=== PATIENT | female | born 1980 | race Caucasian/White ===

== ENCOUNTER 2017-09-24 00:12 | Inpatient (IN) | payer OTHER, BC ==
[2017-09-24] MEDS ORDERED: Nalbuphine 10 MG/1 ML Vial IVPUSH PRN (01:24)
[2017-09-24] MEDS ORDERED: Lidocaine 1% 50 ML MDV INJECT PRN (01:24)
[2017-09-24] MEDS ORDERED: Butorphanol 1 MG/ML SDV IVPUSH PRN (01:24)
[2017-09-24] MEDS ORDERED: Carboprost Tromethamine 250 MCG/1 ML Amp IM PRN (01:24)
[2017-09-24] MEDS ORDERED: Sodium Chloride 0.9% 10 ML Syringe FLUSH PRN (01:24)
[2017-09-24] MEDS ORDERED: Misoprostol 200 MCG Tab PO PRN (01:24)
[2017-09-24] MEDS ORDERED: Water For Irrigation,Sterile 1,000 ML Container IRR PRN (01:24)
[2017-09-24] MEDS ORDERED: Sodium Chloride 0.9% 2.5 ML Syringe FLUSH PRN (01:24)
[2017-09-24] MEDS ORDERED: Terbutaline 1 MG/ML SDV SUBCUT PRN (01:24)
[2017-09-24] MEDS ORDERED: Methylergonovine 0.2 MG/1 ML Amp IM PRN (01:24)
[2017-09-24] MEDS ORDERED: Tranexamic Acid 1,000 MG in Sodium Chloride 0.9% 100 ML IV PRN (01:24)
[2017-09-24] MEDS ORDERED: Oxytocin/0.9 % Sodium Chloride 30 UNIT/500 ML BAG IV SCH ×2 (01:30)
[2017-09-24] MEDS: Lactated Ringers 1,000 ML IV SCH ×3 (06:18→17:27)
[2017-09-24] MEDS ORDERED: Bupivacaine 0.25% 10 ML SDV ONE (10:16)
[2017-09-24] MEDS ORDERED: Bupivacaine 0.5% 10 ML SDV ONE (20:21)
[2017-09-25] MEDS ORDERED: Ondansetron 4 MG/2 ML SDV ONE (02:03)
[2017-09-25] MEDS ORDERED: Morphine PF 1 MG/ML Amp ONE (02:03)
[2017-09-25] MEDS ORDERED: Oxytocin 10 Units/1 ML SDV ONE ×2 (02:17→02:48)
[2017-09-25] MEDS ORDERED: ceFAZolin/Dextrose,Iso-Osmotic 2 GM/50 ML Duplex Bag IV ONE (02:17)
[2017-09-25] MEDS ORDERED: Sodium Chloride 0.9% 20 ML ONE (02:32)
[2017-09-25] MEDS ORDERED: ePHEDrine 50 MG/ML SDV ONE (02:32)
--- NOTE | 2017-09-25 02:53 | PCM.PREANE ---
Preanesthetic Assessment - Procedure Proposed Procedure: emergency failure to progress - Anesthesia/Transfusion/Family Hx Anesthesia History: Prior Anesthesia Without Reaction Family History of Anesthesia Reaction: No - Review of Systems Other: Reports: None - Physical Assessment Height: 5 ft 10 in Weight: 86.636 kg ASA Class: 2E Mental Status: Alert & Oriented x3 Airway Class: Mallampati = 2 Dentition: Reports: Normal Dentition Thyro-Mental Finger Breadths: 2 Mouth Opening Finger Breadths: 2 ROM/Head Extension: Full - Lab Values: Laboratory Last Values WBC 16.68 K/uL (4.0-11.0) H 09/24/17 02:25 RBC 4.07 M/uL (4.30-5.90) L 09/24/17 02:25 Hgb 12.0 g/dL (12.0-16.0) 09/24/17 02:25 Hct 34.5 % (36.0-46.0) L 09/24/17 02:25 MCV 84.8 fL (80.0-98.0) 09/24/17 02:25 MCH 29.5 pg (27.0-32.0) 09/24/17 02:25 MCHC 34.8 g/dL (31.0-37.0) 09/24/17 02:25 RDW Std Deviation 41.4 fl (28.0-62.0) 09/24/17 02:25 RDW Coeff of Annika 14 % (11.0-15.0) 09/24/17 02:25 Plt Count 142 K/uL (150-400) L 09/24/17 02:25 MPV 9.90 fL (7.40-12.00) 09/24/17 02:25 Nucleated RBC % 0.0 /100WBC 09/24/17 02:25 Nucleated RBCs # 0 K/uL 09/24/17 02:25 Membrane Rupture POSITIVE 09/24/17 00:35 Blood Type A NEGATIVE 09/24/17 02:25 Antibody Screen NEGATIVE 09/24/17 02:25 - Allergies Allergies/Adverse Reactions: Allergies Allergy/AdvReac Type Severity Reaction Status Date / Time No Known Allergies Allergy Verified 09/24/17 01:22 - Acknowledgements Anesthesia Type Planned: Epidural (epidural placed earlier will dose for section ) Pt an Appropriate Candidate for the Planned Anesthesia: Yes Alternatives and Risks of Anesthesia Discussed w Pt/Guardian: Yes Pt/Guardian Understands and Agrees with Anesthesia Plan: Yes PreAnesthesia Questionnaire - Past Health History Medical/Surgical History: Denies 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: - Past Surgical History HEENT Surgical History: Reports: Oral Surgery - SUBSTANCE USE Smoking Status *Q: Never Smoker Second Hand Smoke Exposure: No Recreational Drug Use History: No - HOME MEDS Home Medications: Home Meds PNV95/Ferrous Fumarate/FA [ Tablet] 1 tab PO DAILY 09/24/17 [History] valACYclovir HCl [Valtrex] 500 mg PO BID 09/24/17 [History] - CURRENT (IN HOUSE) MEDS Current Meds: Current Medications Butorphanol Tartrate (Stadol) 1 mg IVPUSH Q1H PRN PRN Reason: Pain Last Admin: 09/24/17 09:16 Dose: 1 mg Carboprost Tromethamine (Hemabate Ds) 250 mcg IM ASDIRECTED PRN PRN Reason: Post Hemorrhage Tranexamic Acid 1,000 mg/ (Sodium Chloride) 110 mls @ 660 mls/hr IV ONETIME PRN PRN Reason: Bleeding Lactated Ringer's (Ringers, Lactated) 1,000 mls @ 150 mls/hr IV ASDIRECTED [facility] Last Admin: 09/24/17 17:27 Dose: 150 mls/hr Oxytocin/Sodium Chloride (Oxytocin 30 Unit/500 Ml-Ns) 30 unit in 500 mls @ 999 mls/hr IV TITRATE [facility] Oxytocin/Sodium Chloride (Oxytocin 30 Unit/500 Ml-Ns) 30 unit in 500 mls @ 2 mls/hr IV TITRATE [facility]; Protocol Last Titration: 09/25/17 00:01 Dose: 30 munits/min, 30 mls/hr Lidocaine HCl (Xylocaine 1%) 50 ml INJECT .ONCE PRN PRN Reason: Laceration repair Methylergonovine Maleate (Methergine) 0.2 mg IM ASDIRECTED PRN PRN Reason: Post Hemorrhage Misoprostol (Cytotec) 200 mcg PO .ONCE PRN PRN Reason: Post Hemorrhage Nalbuphine HCl (Nubain) 10 mg IVPUSH Q1H PRN PRN Reason: Pain (severe 7-10) Sodium Chloride (Saline Flush) 10 ml FLUSH ASDIRECTED PRN PRN Reason: Keep Vein Open Sodium Chloride (Saline Flush) 2.5 ml FLUSH ASDIRECTED PRN PRN Reason: Keep Vein Open Sterile Water (Sterile Water For Irrigation) 1,000 ml IRR ASDIRECTED PRN PRN Reason: delivery Terbutaline Sulfate (Brethine) 0.25 mg SUBCUT ASDIRECTED PRN PRN Reason: Tacysystole Discontinued Medications Bupivacaine HCl (Sensorcaine-Mpf 0.25%) Confirm Administered Dose 10 ml .ROUTE .STK-MED ONE Stop: 09/24/17 10:17 Bupivacaine HCl (Sensorcaine-Mpf 0.5%) Confirm Administered Dose 20 ml .ROUTE .STK-MED ONE Stop: 09/24/17 20:22 Cefazolin Sodium/Dextrose (Ancef) Confirm Administered Dose 2 gm IV .STK-MED ONE Stop: 09/25/17 02:18 Ephedrine Sulfate (Ephedrine Sulfate) Confirm Administered Dose 50 mg .ROUTE .STK-MED ONE Stop: 09/25/17 02:33 Fentanyl/Bupivacaine HCl (Sbutaurn-Vbmjf-Pt 2 Mcg/Ml-0.125%) Confirm Administered Dose 100 mls @ as directed EP .STK-MED ONE Stop: 09/24/17 10:16 Fentanyl/Bupivacaine HCl (Soeibcyh-Vgbbx-Xh 2 Mcg/Ml-0.125%) Confirm Administered Dose 100 mls @ as directed EP .STK-MED ONE Stop: 09/24/17 19:32 Sodium Chloride (Normal Saline) Confirm Administered Dose 20 mls @ as directed .ROUTE .STK-MED ONE Stop: 09/25/17 02:33 Morphine Sulfate (Duramorph Pf) Confirm Administered Dose 1 mg .ROUTE .STK-MED ONE Stop: 09/25/17 02:04 Ondansetron HCl (Zofran) Confirm Administered Dose 4 mg .ROUTE .STK-MED ONE Stop: 09/25/17 02:04 Oxytocin (Pitocin) Confirm Administered Dose 20 unit .ROUTE .STK-MED ONE Stop: 09/25/17 02:18
[2017-09-25] MEDS ORDERED: Nalbuphine 10 MG/1 ML Vial IVPUSH PRN (03:08)
[2017-09-25] MEDS ORDERED: Naloxone 0.4 MG/ML Syringe IVPUSH PRN (03:08)
[2017-09-25] MEDS ORDERED: diphenhydrAMINE 50 MG/ML SDV IVPUSH PRN ×2 (03:08→03:30)
[2017-09-25] MEDS ORDERED: fentaNYL 100 MCG/2 ML SDV IVPUSH PRN (03:09)
[2017-09-25] MEDS ORDERED: Acetaminophen/oxyCODONE 325-5 MG Tab PO PRN ×2 (03:09→03:30)
[2017-09-25] MEDS ORDERED: Phenylephrine/Normal Saline 100 MCG/ML 10 ML Syringe ONE (03:18)
[2017-09-25] MEDS ORDERED: Ondansetron 4 MG/2 ML SDV IV PRN (03:30)
[2017-09-25] MEDS ORDERED: Lanolin 100% Cream 7 GM Tube TOP PRN (03:30)
[2017-09-25] MEDS ORDERED: Ibuprofen 800 MG Tab PO PRN (03:30)
[2017-09-25] MEDS ORDERED: Bisacodyl 10 MG Supp RECTAL PRN (03:30)
[2017-09-25] MEDS ORDERED: Lactated Ringers 1,000 ML IV SCH (03:30)
--- NOTE | 2017-09-25 03:38 | PCM.OPNOTE ---
- General Post-Op/Procedure Note Date of Surgery/Procedure: 09/25/17 Operative Procedure(s): Primary lower transverse Findings: Live male delivered at 210am , 9/9 , wt; 3920g Normal uterus , tube and ovaries Uterus closed in 2 layers Surgicel placed in bladder base on the right side due to oozing Pre Op Diagnosis: 37 yo @ 41w3d with Arrest of Dilatation Post-Op Diagnosis: same Primary Surgeon: [facility] Administrator: Jeni Hernandez Pathology: placenta Fluid Replacement, Intraop: 1,000 Output, Urine Amount: 250 EBL in mLs: 700 Complications: None Condition: Good
--- NOTE | 2017-09-25 03:44 | PCM.POSTAN ---
POST ANESTHESIA ASSESSMENT - MENTAL STATUS Mental Status: Alert, Oriented - RESPIRATORY Respiratory Status: Respiratory Rate WNL, Airway Patent, O2 Saturation Stable - CARDIOVASCULAR CV Status: Pulse Rate WNL, Blood Pressure Stable - GASTROINTESTINAL GI Status: No Symptoms - PAIN Pain Score: 0 - POST OP HYDRATION Hydration Status: Adequate & Stable
[2017-09-25] MEDS: Ketorolac 30 MG/ML SDV IVPUSH SCH ×4 (03:52→21:30)
--- NOTE | 2017-09-25 07:43 | PCM48HPAN ---
Post Anesthesia Note - EVALUATION WITHIN 48HRS OF ANESTHETIC Vital Signs in Normal Range: Yes Patient Participated in Evaluation: Yes Respiratory Function Stable: Yes Airway Patent: Yes Cardiovascular Function Stable: Yes Hydration Status Stable: Yes Pain Control Satisfactory: Yes Nausea and Vomiting Control Satisfactory: Yes Mental Status Recovered: Yes Resp Rate: 16
[2017-09-25] MEDS: Docusate Sodium 100 MG Cap PO SCH ×2 (10:18→21:30)
[2017-09-26] MEDS: Ketorolac 30 MG/ML SDV IVPUSH SCH (03:19)
--- NOTE | 2017-09-26 07:28 | PCM.PNPP ---
<Jeni Hernandez - Last Filed: 09/26/17 07:53> - General Info Date of Service: 09/26/17 Admission Dx/Problem (Free Text): Arrest of dilation, section Subjective Update: 37 year old POD#1 from for arrest of dilation. Functional Status: Reports: Pain Controlled, Tolerating Diet, Ambulating, Urinating - Review of Systems General: Denies: Fever, Chills HEENT: Denies: Headaches, Visual Changes Pulmonary: Denies: Shortness of Breath, Pleuritic Chest Pain, Cough Cardiovascular: Denies: Chest Pain, Edema Gastrointestinal: Denies: Constipation, Diarrhea, Nausea, Vomiting Genitourinary: Denies: Dysuria, Frequency, Burning Musculoskeletal: Denies: Leg Pain Neurological: Denies: Dizziness, Headache - General Info Date of Service: 09/26/17 - Patient Data Vital Signs - Most Recent: Last Vital Signs Temp 36.4 C 09/26/17 03:17 Pulse 83 09/26/17 03:17 Resp 18 09/26/17 03:17 BP 117/67 09/26/17 03:17 Pulse Ox 100 09/26/17 03:17 Weight - Most Recent: 86.636 kg I&O - Last 24 Hours: Intake & Output 09/25/17 09/26/17 09/26/17 22:59 06:59 14:59 Intake Total 2350 Output Total 850 Balance 1500 Lab Results - Last 24 Hours: Laboratory Results - last 24 hr 09/26/17 Range/Units 05:25 Hgb 9.8 L (12.0-16.0) g/dL Hct 28.2 L (36.0-46.0) % Med Orders - Current: Current Medications Bisacodyl (Dulcolax) 10 mg RECTAL .ONCE PRN PRN Reason: Constipation Butorphanol Tartrate (Stadol) 1 mg IVPUSH Q1H PRN PRN Reason: Pain Last Admin: 09/24/17 09:16 Dose: 1 mg Carboprost Tromethamine (Hemabate Ds) 250 mcg IM ASDIRECTED PRN PRN Reason: Post Hemorrhage Diphenhydramine HCl (Benadryl) 25 mg IVPUSH Q6H PRN PRN Reason: Itching or Nausea Docusate Sodium (Colace) 100 mg PO BID JAVIER Last Admin: 09/25/17 21:30 Dose: 100 mg Emollient Ointment (Lansinoh Hpa) 0 gm TOP ASDIRECTED PRN PRN Reason: Sore Nipples Last Admin: 09/25/17 15:23 Dose: 7 gm Fentanyl (Sublimaze) 25 - 50 mcg IVPUSH Q30M PRN PRN Reason: Pain Tranexamic Acid 1,000 mg/ (Sodium Chloride) 110 mls @ 660 mls/hr IV ONETIME PRN PRN Reason: Bleeding Lactated Ringer's (Ringers, Lactated) 1,000 mls @ 150 mls/hr IV ASDIRECTED JAVIER Last Admin: 09/24/17 17:27 Dose: 150 mls/hr Oxytocin/Sodium Chloride (Oxytocin 30 Unit/500 Ml-Ns) 30 unit in 500 mls @ 999 mls/hr IV TITRATE JAVIER Oxytocin/Sodium Chloride (Oxytocin 30 Unit/500 Ml-Ns) 30 unit in 500 mls @ 2 mls/hr IV TITRATE [facility]; Protocol Last Titration: 09/25/17 00:01 Dose: 30 munits/min, 30 mls/hr Lactated Ringer's (Ringers, Lactated) 1,000 mls @ 125 mls/hr IV ASDIRECTED [facility] Ibuprofen (Motrin) 800 mg PO Q8H PRN PRN Reason: mild pain or fever Lidocaine HCl (Xylocaine 1%) 50 ml INJECT .ONCE PRN PRN Reason: Laceration repair Methylergonovine Maleate (Methergine) 0.2 mg IM ASDIRECTED PRN PRN Reason: Post Hemorrhage Misoprostol (Cytotec) 200 mcg PO .ONCE PRN PRN Reason: Post Hemorrhage Ondansetron HCl (Zofran) 4 mg IV Q4H PRN PRN Reason: Nausea/Vomiting Oxycodone/Acetaminophen (Percocet 325-5 Mg) 1 - 2 tab PO Q6H PRN PRN Reason: Pain Stop: 09/27/17 14:00 Oxycodone/Acetaminophen (Percocet 325-5 Mg) 1 tab PO Q4H PRN PRN Reason: Pain (moderate 4-6) Oxycodone/Acetaminophen (Percocet 325-5 Mg) 2 tab PO Q4H PRN PRN Reason: Pain (moderate 4-6) Sodium Chloride (Saline Flush) 10 ml FLUSH ASDIRECTED PRN PRN Reason: Keep Vein Open Sodium Chloride (Saline Flush) 2.5 ml FLUSH ASDIRECTED PRN PRN Reason: Keep Vein Open Sterile Water (Sterile Water For Irrigation) 1,000 ml IRR ASDIRECTED PRN PRN Reason: delivery Terbutaline Sulfate (Brethine) 0.25 mg SUBCUT ASDIRECTED PRN PRN Reason: Tacysystole Discontinued Medications Bupivacaine HCl (Sensorcaine-Mpf 0.25%) Confirm Administered Dose 10 ml .ROUTE .STK-MED ONE Stop: 09/24/17 10:17 Bupivacaine HCl (Sensorcaine-Mpf 0.5%) Confirm Administered Dose 20 ml .ROUTE .STK-MED ONE Stop: 09/24/17 20:22 Cefazolin Sodium/Dextrose (Ancef) Confirm Administered Dose 2 gm IV .STK-MED ONE Stop: 09/25/17 02:18 Diphenhydramine HCl (Benadryl) 25 mg IVPUSH Q4H PRN PRN Reason: Itching Stop: 09/26/17 03:08 Ephedrine Sulfate (Ephedrine Sulfate) Confirm Administered Dose 50 mg .ROUTE .STK-MED ONE Stop: 09/25/17 02:33 Fentanyl/Bupivacaine HCl (Gkyagxfr-Qaynb-Fg 2 Mcg/Ml-0.125%) Confirm Administered Dose 100 mls @ as directed EP .STK-MED ONE Stop: 09/24/17 10:16 Fentanyl/Bupivacaine HCl (Vmwzqyys-Bwutd-Lq 2 Mcg/Ml-0.125%) Confirm Administered Dose 100 mls @ as directed EP .STK-MED ONE Stop: 09/24/17 19:32 Sodium Chloride (Normal Saline) Confirm Administered Dose 20 mls @ as directed .ROUTE .STK-MED ONE Stop: 09/25/17 02:33 Ketorolac Tromethamine (Toradol) 30 mg IVPUSH Q6H JAVIER Stop: 09/26/17 03:31 Last Admin: 09/26/17 03:19 Dose: 30 mg Morphine Sulfate (Duramorph Pf) Confirm Administered Dose 1 mg .ROUTE .STK-MED ONE Stop: 09/25/17 02:04 Nalbuphine HCl (Nubain) 10 mg IVPUSH Q1H PRN PRN Reason: Pain (severe 7-10) Nalbuphine HCl (Nubain) 5 mg IVPUSH Q3H PRN PRN Reason: Pruritis Stop: 09/26/17 03:08 Naloxone HCl (Narcan) 0.1 mg IVPUSH ONETIME PRN PRN Reason: Other Stop: 09/26/17 03:09 Ondansetron HCl (Zofran) Confirm Administered Dose 4 mg .ROUTE .STK-MED ONE Stop: 09/25/17 02:04 Oxytocin (Pitocin) Confirm Administered Dose 20 unit .ROUTE .STK-MED ONE Stop: 09/25/17 02:18 Oxytocin (Pitocin) Confirm Administered Dose 20 unit .ROUTE .STK-MED ONE Stop: 09/25/17 02:49 Phenylephrine HCl (Phenylephrine In Ns 100 Mcg/Ml) Confirm Administered Dose 1 mg .ROUTE .STK-MED ONE Stop: 09/25/17 03:19 - Infant Interaction Disposition, : Liberty in Room with Family Infant Interaction: Not Interacting (baby asleep in basinette) Support Person: - Recovery Exam Fundal Tone: Firm Fundal Level: At Umbilicus Fundal Placement: Midline Lochia Amount: Small Lochia Color: Rubra/Red Bladder Status: Voiding Urinary Elimination: Voided - Exam General: Alert, Oriented HEENT: Pupils Equal, Pupils Reactive Lungs: Clear to Auscultation, Normal Respiratory Effort. No: Wheezing Cardiovascular: Regular Rate, Regular Rhythm, No Murmurs GI/Abdominal Exam: Normal Bowel Sounds, Soft, No Distention. No: Guarding, Rebound Extremities: Normal Inspection, Normal Range of Motion, Non-Tender, No Pedal Edema, Normal Capillary Refill Skin: Warm, Dry, Intact Wound/Incisions: Healing Well Neurological: No New Focal Deficit Psy/Mental Status: Alert, Normal Affect, Normal Mood - Problem List Review Problem List Initiated/Reviewed/Updated: Yes - Assessment Assessment:: 37 year old POD#1 s/p section for arrest of dilation. Recovering appropriately. - Plan Plan:: Continue routine post op cares. <Merced Segura - Last Filed: 09/26/17 19:55> - Patient Data Vital Signs - Most Recent: Last Vital Signs Temp 36.4 C 09/26/17 16:00 Pulse 85 09/26/17 16:00 Resp 16 09/26/17 16:00 BP 112/68 09/26/17 16:00 Pulse Ox 100 09/26/17 16:00 I&O - Last 24 Hours: Intake & Output 09/26/17 09/26/17 09/26/17 06:59 14:59 22:59 Intake Total 2 Balance 2 Lab Results - Last 24 Hours: Laboratory Results - last 24 hr 09/25/17 09/26/17 Range/Units 03:25 05:25 Hgb 9.8 L (12.0-16.0) g/dL Hct 28.2 L (36.0-46.0) % Antibody Screen NEGATIVE Screen NEGATIVE (NEGATIVE) RhIG Candidate? YES Rhogam Indicated YES, BABY RH POS H Med Orders - Current: Current Medications Bisacodyl (Dulcolax) 10 mg RECTAL .ONCE PRN PRN Reason: Constipation Butorphanol Tartrate (Stadol) 1 mg IVPUSH Q1H PRN PRN Reason: Pain Last Admin: 09/24/17 09:16 Dose: 1 mg Carboprost Tromethamine (Hemabate Ds) 250 mcg IM ASDIRECTED PRN PRN Reason: Post Hemorrhage Diphenhydramine HCl (Benadryl) 25 mg IVPUSH Q6H PRN PRN Reason: Itching or Nausea Docusate Sodium (Colace) 100 mg PO BID [facility] Last Admin: 09/26/17 08:49 Dose: 100 mg Emollient Ointment (Lansinoh Hpa) 0 gm TOP ASDIRECTED PRN PRN Reason: Sore Nipples Last Admin: 09/25/17 15:23 Dose: 7 gm Fentanyl (Sublimaze) 25 - 50 mcg IVPUSH Q30M PRN PRN Reason: Pain Tranexamic Acid 1,000 mg/ (Sodium Chloride) 110 mls @ 660 mls/hr IV ONETIME PRN PRN Reason: Bleeding Lactated Ringer's (Ringers, Lactated) 1,000 mls @ 150 mls/hr IV ASDIRECTED JAVIER Last Admin: 09/24/17 17:27 Dose: 150 mls/hr Oxytocin/Sodium Chloride (Oxytocin 30 Unit/500 Ml-Ns) 30 unit in 500 mls @ 999 mls/hr IV TITRATE [facility] Oxytocin/Sodium Chloride (Oxytocin 30 Unit/500 Ml-Ns) 30 unit in 500 mls @ 2 mls/hr IV TITRATE [facility]; Protocol Last Titration: 09/25/17 00:01 Dose: 30 munits/min, 30 mls/hr Lactated Ringer's (Ringers, Lactated) 1,000 mls @ 125 mls/hr IV ASDIRECTED [facility] Ibuprofen (Motrin) 800 mg PO Q8H PRN PRN Reason: mild pain or fever Last Admin: 09/26/17 12:58 Dose: 800 mg Lidocaine HCl (Xylocaine 1%) 50 ml INJECT .ONCE PRN PRN Reason: Laceration repair Methylergonovine Maleate (Methergine) 0.2 mg IM ASDIRECTED PRN PRN Reason: Post Hemorrhage Misoprostol (Cytotec) 200 mcg PO .ONCE PRN PRN Reason: Post Hemorrhage Ondansetron HCl (Zofran) 4 mg IV Q4H PRN PRN Reason: Nausea/Vomiting Oxycodone/Acetaminophen (Percocet 325-5 Mg) 1 - 2 tab PO Q6H PRN PRN Reason: Pain Stop: 09/27/17 14:00 Oxycodone/Acetaminophen (Percocet 325-5 Mg) 1 tab PO Q4H PRN PRN Reason: Pain (moderate 4-6) Last Admin: 09/26/17 08:49 Dose: 1 tab Oxycodone/Acetaminophen (Percocet 325-5 Mg) 2 tab PO Q4H PRN PRN Reason: Pain (moderate 4-6) Sodium Chloride (Saline Flush) 10 ml FLUSH ASDIRECTED PRN PRN Reason: Keep Vein Open Sodium Chloride (Saline Flush) 2.5 ml FLUSH ASDIRECTED PRN PRN Reason: Keep Vein Open Sterile Water (Sterile Water For Irrigation) 1,000 ml IRR ASDIRECTED PRN PRN Reason: delivery Terbutaline Sulfate (Brethine) 0.25 mg SUBCUT ASDIRECTED PRN PRN Reason: Tacysystole Discontinued Medications Bupivacaine HCl (Sensorcaine-Mpf 0.25%) Confirm Administered Dose 10 ml .ROUTE .STK-MED ONE Stop: 09/24/17 10:17 Bupivacaine HCl (Sensorcaine-Mpf 0.5%) Confirm Administered Dose 20 ml .ROUTE .STK-MED ONE Stop: 09/24/17 20:22 Cefazolin Sodium/Dextrose (Ancef) Confirm Administered Dose 2 gm IV .STK-MED ONE Stop: 09/25/17 02:18 Diphenhydramine HCl (Benadryl) 25 mg IVPUSH Q4H PRN PRN Reason: Itching Stop: 09/26/17 03:08 Ephedrine Sulfate (Ephedrine Sulfate) Confirm Administered Dose 50 mg .ROUTE .STK-MED ONE Stop: 09/25/17 02:33 Fentanyl/Bupivacaine HCl (Xcduidcx-Mefdw-Xm 2 Mcg/Ml-0.125%) Confirm Administered Dose 100 mls @ as directed EP .STK-MED ONE Stop: 09/24/17 10:16 Fentanyl/Bupivacaine HCl (Lhamvibz-Ywvuk-Rm 2 Mcg/Ml-0.125%) Confirm Administered Dose 100 mls @ as directed EP .STK-MED ONE Stop: 09/24/17 19:32 Sodium Chloride (Normal Saline) Confirm Administered Dose 20 mls @ as directed .ROUTE .STK-MED ONE Stop: 09/25/17 02:33 Ketorolac Tromethamine (Toradol) 30 mg IVPUSH Q6H J[facility]IER Stop: 09/26/17 03:31 Last Admin: 09/26/17 03:19 Dose: 30 mg Morphine Sulfate (Duramorph Pf) Confirm Administered Dose 1 mg .ROUTE .STK-MED ONE Stop: 09/25/17 02:04 Nalbuphine HCl (Nubain) 10 mg IVPUSH Q1H PRN PRN Reason: Pain (severe 7-10) Nalbuphine HCl (Nubain) 5 mg IVPUSH Q3H PRN PRN Reason: Pruritis Stop: 09/26/17 03:08 Naloxone HCl (Narcan) 0.1 mg IVPUSH ONETIME PRN PRN Reason: Other Stop: 09/26/17 03:09 Ondansetron HCl (Zofran) Confirm Administered Dose 4 mg .ROUTE .STK-MED ONE Stop: 09/25/17 02:04 Oxytocin (Pitocin) Confirm Administered Dose 20 unit .ROUTE .STK-MED ONE Stop: 09/25/17 02:18 Oxytocin (Pitocin) Confirm Administered Dose 20 unit .ROUTE .STK-MED ONE Stop: 09/25/17 02:49 Phenylephrine HCl (Phenylephrine In Ns 100 Mcg/Ml) Confirm Administered Dose 1 mg .ROUTE .STK-MED ONE Stop: 09/25/17 03:19 - Problem List & Annotations (1) delivery delivered SNOMED Code(s): 885357145 Code(s): O82 - ENCOUNTER FOR DELIVERY WITHOUT INDICATION Status: Acute Current Visit: Yes - Assessment Assessment:: 37 yo P1 s/p Primary LTCS , she has met all post operative goals. she is voiding , ambulating and tolerating regular diet , Minimal lochia. - Plan Plan:: Incentive spirometry , continue ambulation , Pain control as needed
[2017-09-26] MEDS: Acetaminophen/oxyCODONE 325-5 MG Tab PO PRN ×2 (08:49→21:49)
[2017-09-26] MEDS: Docusate Sodium 100 MG Cap PO SCH ×2 (08:49→21:12)
[2017-09-27] MEDS: Acetaminophen/oxyCODONE 325-5 MG Tab PO PRN (04:06)
--- NOTE | 2017-09-27 07:02 | PCM.PNPP ---
- General Info Date of Service: 09/27/17 Admission Dx/Problem (Free Text): 37 yo P1 s/p primary LTCS for arrest of dilatation Functional Status: Reports: Pain Controlled, Tolerating Diet, Ambulating, Urinating - Review of Systems General: Denies: Fever, Weakness, Fatigue Pulmonary: Denies: Shortness of Breath Cardiovascular: Denies: Chest Pain, Palpitations, Lightheadedness Gastrointestinal: Denies: Abdominal Pain, Nausea, Vomiting Genitourinary: Denies: Flank Pain Psychiatric: Reports: No Symptoms - General Info Date of Service: 09/27/17 - Patient Data Vital Signs - Most Recent: Last Vital Signs Temp 36.9 C 09/27/17 06:21 Pulse 91 09/27/17 06:21 Resp 16 09/27/17 06:21 BP 111/59 L 09/27/17 06:21 Pulse Ox 96 09/27/17 06:21 Weight - Most Recent: 86.636 kg I&O - Last 24 Hours: Intake & Output 09/26/17 09/26/17 09/27/17 14:59 22:59 06:59 Intake Total 2 Balance 2 Lab Results - Last 24 Hours: Laboratory Results - last 24 hr 09/25/17 Range/Units 03:25 Antibody Screen NEGATIVE Screen NEGATIVE (NEGATIVE) RhIG Candidate? YES Rhogam Indicated YES, BABY RH POS H Med Orders - Current: Current Medications Bisacodyl (Dulcolax) 10 mg RECTAL .ONCE PRN PRN Reason: Constipation Butorphanol Tartrate (Stadol) 1 mg IVPUSH Q1H PRN PRN Reason: Pain Last Admin: 09/24/17 09:16 Dose: 1 mg Carboprost Tromethamine (Hemabate Ds) 250 mcg IM ASDIRECTED PRN PRN Reason: Post Hemorrhage Diphenhydramine HCl (Benadryl) 25 mg IVPUSH Q6H PRN PRN Reason: Itching or Nausea Docusate Sodium (Colace) 100 mg PO BID JAVIER Last Admin: 09/26/17 21:12 Dose: 100 mg Emollient Ointment (Lansinoh Hpa) 0 gm TOP ASDIRECTED PRN PRN Reason: Sore Nipples Last Admin: 09/25/17 15:23 Dose: 7 gm Fentanyl (Sublimaze) 25 - 50 mcg IVPUSH Q30M PRN PRN Reason: Pain Tranexamic Acid 1,000 mg/ (Sodium Chloride) 110 mls @ 660 mls/hr IV ONETIME PRN PRN Reason: Bleeding Lactated Ringer's (Ringers, Lactated) 1,000 mls @ 150 mls/hr IV ASDIRECTED JAVIER Last Admin: 09/24/17 17:27 Dose: 150 mls/hr Oxytocin/Sodium Chloride (Oxytocin 30 Unit/500 Ml-Ns) 30 unit in 500 mls @ 999 mls/hr IV TITRATE JAVIER Oxytocin/Sodium Chloride (Oxytocin 30 Unit/500 Ml-Ns) 30 unit in 500 mls @ 2 mls/hr IV TITRATE JAVIER; Protocol Last Titration: 09/25/17 00:01 Dose: 30 munits/min, 30 mls/hr Lactated Ringer's (Ringers, Lactated) 1,000 mls @ 125 mls/hr IV ASDIRECTED JAVIER Ibuprofen (Motrin) 800 mg PO Q8H PRN PRN Reason: mild pain or fever Last Admin: 09/26/17 12:58 Dose: 800 mg Lidocaine HCl (Xylocaine 1%) 50 ml INJECT .ONCE PRN PRN Reason: Laceration repair Methylergonovine Maleate (Methergine) 0.2 mg IM ASDIRECTED PRN PRN Reason: Post Hemorrhage Misoprostol (Cytotec) 200 mcg PO .ONCE PRN PRN Reason: Post Hemorrhage Ondansetron HCl (Zofran) 4 mg IV Q4H PRN PRN Reason: Nausea/Vomiting Oxycodone/Acetaminophen (Percocet 325-5 Mg) 1 - 2 tab PO Q6H PRN PRN Reason: Pain Stop: 09/27/17 14:00 Oxycodone/Acetaminophen (Percocet 325-5 Mg) 1 tab PO Q4H PRN PRN Reason: Pain (moderate 4-6) Last Admin: 09/27/17 04:06 Dose: 1 tab Oxycodone/Acetaminophen (Percocet 325-5 Mg) 2 tab PO Q4H PRN PRN Reason: Pain (moderate 4-6) Sodium Chloride (Saline Flush) 10 ml FLUSH ASDIRECTED PRN PRN Reason: Keep Vein Open Sodium Chloride (Saline Flush) 2.5 ml FLUSH ASDIRECTED PRN PRN Reason: Keep Vein Open Sterile Water (Sterile Water For Irrigation) 1,000 ml IRR ASDIRECTED PRN PRN Reason: delivery Terbutaline Sulfate (Brethine) 0.25 mg SUBCUT ASDIRECTED PRN PRN Reason: Tacysystole Discontinued Medications Bupivacaine HCl (Sensorcaine-Mpf 0.25%) Confirm Administered Dose 10 ml .ROUTE .STK-MED ONE Stop: 09/24/17 10:17 Bupivacaine HCl (Sensorcaine-Mpf 0.5%) Confirm Administered Dose 20 ml .ROUTE .STK-MED ONE Stop: 09/24/17 20:22 Cefazolin Sodium/Dextrose (Ancef) Confirm Administered Dose 2 gm IV .STK-MED ONE Stop: 09/25/17 02:18 Diphenhydramine HCl (Benadryl) 25 mg IVPUSH Q4H PRN PRN Reason: Itching Stop: 09/26/17 03:08 Ephedrine Sulfate (Ephedrine Sulfate) Confirm Administered Dose 50 mg .ROUTE .STK-MED ONE Stop: 09/25/17 02:33 Fentanyl/Bupivacaine HCl (Ymfsjrwd-Yxwwi-Ru 2 Mcg/Ml-0.125%) Confirm Administered Dose 100 mls @ as directed EP .STK-MED ONE Stop: 09/24/17 10:16 Fentanyl/Bupivacaine HCl (Mhcikqyg-Akpct-Jz 2 Mcg/Ml-0.125%) Confirm Administered Dose 100 mls @ as directed EP .STK-MED ONE Stop: 09/24/17 19:32 Sodium Chloride (Normal Saline) Confirm Administered Dose 20 mls @ as directed .ROUTE .STK-MED ONE Stop: 09/25/17 02:33 Ketorolac Tromethamine (Toradol) 30 mg IVPUSH Q6H JAVIER Stop: 09/26/17 03:31 Last Admin: 09/26/17 03:19 Dose: 30 mg Morphine Sulfate (Duramorph Pf) Confirm Administered Dose 1 mg .ROUTE .STK-MED ONE Stop: 09/25/17 02:04 Nalbuphine HCl (Nubain) 10 mg IVPUSH Q1H PRN PRN Reason: Pain (severe 7-10) Nalbuphine HCl (Nubain) 5 mg IVPUSH Q3H PRN PRN Reason: Pruritis Stop: 09/26/17 03:08 Naloxone HCl (Narcan) 0.1 mg IVPUSH ONETIME PRN PRN Reason: Other Stop: 09/26/17 03:09 Ondansetron HCl (Zofran) Confirm Administered Dose 4 mg .ROUTE .STK-MED ONE Stop: 09/25/17 02:04 Oxytocin (Pitocin) Confirm Administered Dose 20 unit .ROUTE .STK-MED ONE Stop: 09/25/17 02:18 Oxytocin (Pitocin) Confirm Administered Dose 20 unit .ROUTE .STK-MED ONE Stop: 09/25/17 02:49 Phenylephrine HCl (Phenylephrine In Ns 100 Mcg/Ml) Confirm Administered Dose 1 mg .ROUTE .STK-MED ONE Stop: 09/25/17 03:19 - Interaction Disposition, : [place] in Room with Family Interaction: Not Interacting (baby asleep in basinette) Support Person: - Recovery Exam Fundal Tone: Firm Fundal Level: At Umbilicus Fundal Placement: Midline Lochia Amount: Scant Lochia Color: Rubra/Red Perineum Description: Intact, Minimal Bruising/Swelling Episiotomy/Laceration: None Bladder Status: Voiding Urinary Elimination: Voided - Exam General: Alert, Oriented Lungs: Normal Respiratory Effort Cardiovascular: Regular Rate, Regular Rhythm GI/Abdominal Exam: Normal Bowel Sounds, Soft Extremities: Pedal Edema (trace). No: Kourtney's Sign Skin: Warm, Dry, Intact Wound/Incisions: Healing Well, No Drainage. No: Erythema Psy/Mental Status: Alert, Normal Affect - Problem List & Annotations (1) delivery delivered SNOMED Code(s): 997188272 Code(s): O82 - ENCOUNTER FOR DELIVERY WITHOUT INDICATION Status: Acute Current Visit: Yes - Problem List Review Problem List Initiated/Reviewed/Updated: Yes - My Orders Last 24 Hours: My Active Orders 09/27/17 06:58 Ready for Discharge [RC] PER UNIT ROUTINE - Assessment Assessment:: POD 2 status post repeat C section - Plan Plan:: Discharge to home today. Infection and bleeding warnings reviewed. Discharge instructions reviewed. Follow up at [facility] 2 and 6 weeks.
--- NOTE | 2017-09-29 09:32 | OR ---
SURGEON: EMIL KNIGHT DATE OF PROCEDURE: 09/25/2017 PREOPERATIVE DIAGNOSES: A 37-year-old G1, P0 at 41 weeks 3 days with arrest of dilation. POSTOPERATIVE DIAGNOSES: A 37-year-old G1, P0 at 41 weeks 3 days with arrest of dilation. PROCEDURE Primary Lower transverse IV FLUIDS: 1000. ESTIMATED BLOOD LOSS: 700. URINE OUTPUT: 55 mL. FINDINGS: A live male delivered at 2:10 a.m. score of 9 and 9. Weight is 3920 g. BRIEF HISTORY ABOUT THE PATIENT: The patient is a 37-year-old, G1, P0, 41w3d.She was admitted in early labor , she was admitted with SROM. She made cervical changes to 4 to 5 cm. Pitocin was started , however ,Vaginal exam remained 5cm, despite Pitocin. Pitocin 20mu. During the labor course, the patient was noted to have category II heart tracing which resolved with intrauterine resuscitative measures. As patient did not make any cervical change despite Pitocin at 20mu. She was counselled for . She was allowed to ask questions , all questions answered DESCRIPTION OF PROCEDURE: The patient was taken to the operating room where epidural anesthesia was topped off. She was prepared and draped in the dorsal supine position with a leftward tilt. A Pfannenstiel skin incision was made with a scalpel and was carried down to the fascia with the Bovie. The fascia was incised and extended laterally. The fascia was from the rectus muscle inferiorly and superiorly to the level of the pubic symphysis. The rectus muscle was also in the midline. The peritoneum was then entered in bluntly and extended upward and outward. An Kris retractor was then placed to expose the lower uterine segment identified and bladder flap was created. A uterine incision was then created also. Fetus was in vertex position. The head of the infant was elevated to the level of the incision, then fundal pressure was applied. The head was delivered. The shoulder was delivered anteriorly, and also posterior shoulder was delivered. The infant was handed over to the awaiting buyer intern. The cord blood gases were obtained. The placenta was delivered by manual massage of the uterine fundus. The incision was then sutured in 2 layers with 0 vicyrl and 0 monocyrl respectively. The peritoneum was closed with 2.0 vicryl,The fascia was closed with 0 Vicryl, and the skin incision was closed with 3.0 Monocryl on a bertha needle. All instrument and pad count were correct x2. The patient was taken to the recovery room in stable condition ZE PRINCE /[id number] MTDD
== END 2017-09-27 10:05 | disposition home or self-care (01) | DRG 765 ==
LOC: MW.OBCHECK 00:12 → MW.OB 00:15 → UNDOADMOB 00:19 → MW.OBCHECK 00:19 → MW.OB 01:24 → OBSVTOIN 09-25 02:10 → MW.OB 09-25 04:00
PROVIDERS: ADMIT Obstetrics & Gynecology; ATTEND Obstetrics & Gynecology
PROC: 10D00Z1 Extraction of Products of Conception, Low, Open Approach (ICD-10-PCS; principal; 2017-09-25)
PROC: 3E0P7VZ Introduction of Hormone into Female Reproductive, Via Natural or Artificial Opening (ICD-10-PCS; 2017-09-25)
PROC: 3E0234Z Introduction of Serum, Toxoid and Vaccine into Muscle, Percutaneous Approach (ICD-10-PCS; 2017-09-26)
DX: O62.0 Primary inadequate contractions (principal); O98.32 Other infections with a predominantly sexual mode of transmission complicating childbirth; O40.3XX0 Polyhydramnios, third trimester, not applicable or unspecified; O76 Abnormality in fetal heart rate and rhythm complicating labor and delivery; Z37.0 Single live birth; O42.92 Full-term premature rupture of membranes, unspecified as to length of time between rupture and onset of labor; Z3A.40 40 weeks gestation of pregnancy; O26.893 Other specified pregnancy related conditions, third trimester; Z67.11 Type A blood, Rh negative; A60.00 Herpesviral infection of urogenital system, unspecified
CPT/HCPCS: 36415; 51702; 82803; 84112; 85014; 85018; 85027; 85460; 86850; 86900; 86901; 88307; A9270-GY; J0595; J0690; J1885; J2274; J2370; J2405; J2590; J2792; J3490; J7120